=== PATIENT | male | born 1965 | race Caucasian/White ===

== ENCOUNTER 2019-03-10 20:03 | Emergency (ER) | payer OTHER ==
[2019-03-10 20:28] VITALS: BP 139/83; PULSE 87; TEMP 99.7; BMI 28.8
[2019-03-10 21:14] LABS: HEMATOCRIT 40.3 % (35.4-49); HEMOGLOBIN 13.5 GM/dl (11.7-16.9); MCH 33.2 pg (25.7-33.7); MCHC 33.4 g/dl (32.0-35.9); MEAN CELL VOLUME 99.2 fl (80-96); MEAN PLT VOLUME 8.9 fl (7.5-11.1); PLATELET COUNT 169 K/MM3 (134-434); RBC 4.06 M/mm3 (4.00-5.60); WHITE BLOOD COUNT 9.4 K/mm3 (4.0-10.8)
[2019-03-10 21:27] LABS: BILIRUBIN,TOTAL 2.9 mg/dl (0.2-1); CREATININE 0.6 mg/dl (0.55-1.3); POTASSIUM 3.2 mmol/L (3.5-5.1)
--- NOTE | 2019-03-10 21:46 | PDOC ---
Documentation entered by Homa Vasquez SCRIBE, acting as scribe for Rocky Chung MD. Rocky Chung MD: This documentation has been prepared by the Pedro herrera Aiswarya, SCRIBE, under my direction and personally reviewed by me in its entirety. I confirm that the documentation accurately reflects all work, treatment, procedures, and medical decision making performed by me. History of Present Illness - General Chief Complaint: Diarrhea Stated Complaint: STOMACH BLOATING/MALAISE Time Seen by Provider: 03/10/19 20:12 History Source: Patient Exam Limitations: No Limitations - History of Present Illness Initial Comments: 03/10/19 20:48 Assessment and plan: This is a 53-year-old male who comes in complaining of abdominal bloating patient denies any fever, chills, nausea, vomiting, or constipation. Patient does report that he was in [place] approximately one week ago developed diarrhea took some antidiarrheal medications and is antibiotic and the diarrhea resolved. However after he came home he did have one episode of diarrhea and then started with the abdominal bloating. CBC, comp was sent and flat and upright was ordered to rule out obstruction and rule out abnormal labs. Abdominal Flat and upright show no acute pathology there is some mild increase in gas in the upper abdominal area especially in his stomach otherwise normal liver enzymes are elevated and his sodium is a little low his potassium is little low. Patient most likely picked up hepatitis A well traveling to [place]. Patient was given copies of his blood work and the told to follow-up with his primary care doctor. Hepatitis A and B profile were sent to the lab so that when he follows up with his doctor is doctor can call for the results 03/10/19 20:54 The patient is a 53 year old male, with no significant PMH, who presents to the emergency department complaining of 3 days of abdominal bloating. The patient states he was in [place] about a week ago where he developed diarrhea. Patient was prescribed antidiarrheal medication and diarrhea resolved. Patient states he currently feels bloated and fatigue. Patients last BM was yesterday. The patient denies chest pain, shortness of breath, headache and dizziness.Denies fever, chills, nausea, vomit, diarrhea and constipation. Denies any abdomen pain. PAST MEDICAL HISTORY: no significant history PAST SURGICAL HISTORY: no significant history FAMILY HISTORY: no pertinent history SOCIAL HISTORY: Pt lives with family and is employed. MEDICATIONS: reviewed ALLERGIES: As per nursing notes Adult ROS General: No fevers or chills, no weakness, no weight loss HEENT: No change in vision. No sore throat,. No ear pain CardioVascular: No chest pain or shortness of breath Respiratory:No cough, or wheezing. Gastrointestinal: +Bloating. no nausea, vomiting, diarrhea or constipation, No rectal bleeding Genitourinary: No dysuria, hematuria, or frequency Musculoskeletal: No joint or muscle pain or swelling Neurologic: No headache, vertigo, dizziness or loss of consciousness Psychiatric: nor depression Skin: No rashes or easy bruising Endocrine: no increased thirst or abnormal weight change Allergic: no skin or latex allergy All other systems reviewed and normal Adult Exam: General: Well-nourished well-developed individual, no acute distress HEENT: Throat: Normal, tonsils normal, no erythema or exudate Neck: Supple, no meningeal signs, no lymphadenopathy Eyes::Pupils equal reactive and round, extraocular motion intact Chest: Nontender to palpation Cardiac: S1-S2 normal, regular rate and rhythm, no murmurs rubs or gallops Respiratory: Lungs clear to auscultation bilateral Abdomen: Soft, nondistended, normal bowel sounds, nontender to palpation diffusely Extremities: Warm, dry, no cyanosis, clubbing, or edema Skin: No rashes Neuro: Alert and oriented x3, nonfocal exam, grossly intact, normal gait Psych: Normal mood and affect 03/10/19 21:44 Past History - Past Medical History Allergies/Adverse Reactions: Allergies Allergy/AdvReac Type Severity Reaction Status Date / Time No Known Allergies Allergy Unverified 03/10/19 20:05 Home Medications: Ambulatory Orders Acetaminophen 500 mg PO PRN PRN 03/10/19 Simethicone 180 mg PO DAILY 03/10/19 Telmisartan/Hydrochlorothiazid [Micardis Hct 80-12.5 mg Tablet] 1 each PO DAILY 03/10/19 *Physical Exam - Vital Signs Last Vital Signs Temp Pulse Resp BP Pulse Ox 99.7 F H 87 16 139/83 96 03/10/19 20:05 03/10/19 20:05 03/10/19 20:05 03/10/19 20:05 03/10/19 20:05 ED Treatment Course - LABORATORY CBC & Chemistry Diagram: 03/10/19 20:54 03/10/19 20:54 - RADIOLOGY Radiology Studies Ordered: Category Date Time Status ABDOMEN FLAT & UPRIGHT [RAD] Stat Radiology 03/10/19 20:19 Taken *DC/Admit/Observation/Transfer Diagnosis at time of Disposition: Hepatitis - Discharge Dispostion Disposition: HOME Condition at time of disposition: Stable Decision to Admit order: No - Referrals Referrals: Tammy Osei [Primary Care Provider] - - Patient Instructions Printed Discharge Instructions: Hepatitis A Virus Additional Instructions: Your blood work shows that you most likely contracted hepatitis a well traveling in [place]. Hepatitis A as a viral infection that we'll give you the symptoms that you are experiencing. It is a self-limiting illness and will get better on its own with in a couple of weeks. However it is important that you follow-up with your doctor to have your liver enzymes monitored during the course of the illness. When you follow-up with your doctor next week your doctor can call for the results of your hepatitis A and B screen. Return to the emergency department immediately with ANY new, persistent or worsening symptoms. Continue any medications as previously prescribed by your physician. You should follow up with your primary doctor as soon as possible regarding today's emergency department visit. . Please make sure your doctor reviews the results of your emergency evaluation. Thank you for coming to the Emergency Department today for your care. It was a pleasure to see you today. Please note that your evaluation is INCOMPLETE until you follow-up with your doctor. - Post Discharge Activity
[2019-03-10 21:49] LABS: PLATELET ESTIMATE ADEQUATE
[2019-03-13 00:11] LABS: HEP B CORE AB, TOT Negative (Negative)
== END 2019-03-10 22:11 | disposition home or self-care (01) ==
LOC: FER 20:03
DX: B15.9 Hepatitis A without hepatic coma (principal)
CPT/HCPCS: 36415; 74019-TC-FY; 80053; 80074; 85025; 86704; 86706; 86707; 86708; 86709; 87340; 99282-25